=== PATIENT | female | born 1945 | race Hispanic/Latino ===

== ENCOUNTER 2019-01-22 09:59 | Outpatient (CLI) | payer OTHER | END 2019-01-22 19:56 | disposition home or self-care (01) | LOC: RESP 09:59 | DX: R06.02 Shortness of breath (principal) ==

== ENCOUNTER 2020-06-19 09:08 | Outpatient (CLI) | payer OTHER | END 2020-06-19 21:47 | disposition home or self-care (01) | LOC: US 09:08 | PROVIDERS: ATTEND Internal Medicine | DX: M79.662 Pain in left lower leg (principal); R22.42 Localized swelling, mass and lump, left lower limb ==

== ENCOUNTER 2021-08-26 08:48 | Outpatient (CLI) | payer OTHER | END 2021-08-26 18:53 | disposition home or self-care (01) | LOC: RESP 08:48 | PROVIDERS: ATTEND Internal Medicine | DX: I25.10 Atherosclerotic heart disease of native coronary artery without angina pectoris (principal); R42 Dizziness and giddiness; R60.0 Localized edema; I10 Essential (primary) hypertension; I73.9 Peripheral vascular disease, unspecified; I21.9 Acute myocardial infarction, unspecified; R06.01 Orthopnea; R07.89 Other chest pain; R53.83 Other fatigue; R06.02 Shortness of breath; I72.8 Aneurysm of other specified arteries; R55 Syncope and collapse; Z13.820 Encounter for screening for osteoporosis; N95.8 Other specified menopausal and perimenopausal disorders ==

== ENCOUNTER 2021-08-28 09:13 | Outpatient (CLI) | payer OTHER | END 2021-08-28 19:26 | disposition home or self-care (01) | LOC: CT 09:13 | PROVIDERS: ATTEND Internal Medicine | DX: I25.10 Atherosclerotic heart disease of native coronary artery without angina pectoris (principal); R42 Dizziness and giddiness; R60.0 Localized edema; I10 Essential (primary) hypertension; I73.9 Peripheral vascular disease, unspecified; I21.9 Acute myocardial infarction, unspecified; R06.01 Orthopnea; R07.89 Other chest pain; R53.83 Other fatigue; R06.02 Shortness of breath; I72.8 Aneurysm of other specified arteries; R55 Syncope and collapse | CPT/HCPCS: 36415; 82565; 84520; Q9963 ==